=== PATIENT | female | born 1990 | race Caucasian/White ===

== ENCOUNTER 2017-02-13 20:36 | Inpatient (IN) | payer OTHER ==
[~2017-02-13] VITALS: Ht 162.6 cm; Wt 83.9 kg
[~2017-02-13 20:36] MED LIST: CYMBALTA20 M1 PO; HYDROCODON-ACETAMINO; HYDROCODONE BIT1 T26 PO; LYRICA100 MG PO; PRENATAL1 TA2 PO; VICODIN 300 MG-1 TAB; VICODIN 300 MG-1 TAB PO
[2017-02-14 00:46] LABS: ABSOLUTE BASOPHIL COUNT 0.1 /CUMM (0.0-0.2); ABSOLUTE EOSINOPHIL COUNT 0.2 /CUMM (0.0-0.7); ABSOLUTE GRANULOCYTE CT 8.7 /CUMM (1.4-6.5); ABSOLUTE LYMPH COUNT 2.5 /CUMM (1.2-3.4); ABSOLUTE MONOCYTE COUNT 0.7 /CUMM (0.10-0.60); BASOPHIL % 0.4 % (0.0-2.0); EOSINOPHIL % 1.5 % (0-5); GRANULOCYTE % 71.8 % (42.2-75.2); HEMATOCRIT 30.4 % (37-47); MEAN CORPUSCULAR HGB 28.5 PG (27.0-31.0); MEAN CORPUSCULAR HGB CONC 33.6 G/DL (33.0-37.0); MEAN CORPUSCULAR VOLUME 84.9 FL (81.0-99.0); PLATELET COUNT 313 /CUMM (130-400); RBC DISTRIBUTION WIDTH 14.1 % (11.5-14.5); RED BLOOD CELL CT 3.58 /CUMM (4.20-5.40); WHITE BLOOD CELL COUNT 12.1 /CUMM (4.8-10.8)
[2017-02-14] MEDS ORDERED: PRENATABS RX T1 EACH PO (09:36)
--- NOTE | 2017-02-14 16:32 | History & Physical ---
General Information and HPI MD Statement: I have seen and personally examined NEERAJ CORONA and documented this H&P. The patient is a 27 year old female at [38] weeks and [0] days gestation who presented with a chief complaint of [ACTIVE LABOR]. Source of Information: police History of Present Illness: 26YO LMP 05/23/16 EDC 02/27/17 AT 38 WEEKS IN ACTIVE LABOR. PNC COMPLETE AND REMARKABLE FOR FIBROMYALGIA ON VICODIN. Allergies/Medications Allergies: Coded Allergies: latex (Severe, HIVES 02/14/17) gluten (ABDOMINAL CRAMPING 02/14/17) Home Med list Duloxetine Hydrochloride (Cymbalta) 20 MG CAPSULE.DR 1 CAP PO DAILY FIBROMYALGIA (Reported) HYDROCODONE/ACETAMINOPHEN (Vicodin 5-300 MG Tablet) 5 MG-300 MG TABLET 1 TAB PO Q6P PRN PAIN Vit #76/Iron,Carb/FA (Prenatabs Rx Tablet) 29 MG IRON-1 MG TABLET 1 TAB PO DAILY (Reported) Past History branch specialist History : 3 Para: 2 Last Menstrual Period: 05/23/16 Estimated Delivery Date: 02/27/17 Past branch specialist History: non-contributory Medical History Musculoskeletal: rheumatoid arthritis Psychiatric: opioid dependence Cancer(s): melanoma Surgical History Pertinent Surgical History: cholecystectomy Past Family/Social History Psychosocial History Smoking Status: Never Smoked Review of Systems Review of Systems Constitutional: Reports: no symptoms. EENTM: Reports: no symptoms. Cardiovascular: Reports: no symptoms. Respiratory: Reports: no symptoms. GI: Reports: no symptoms. Genitourinary: Reports: see HPI. Musculoskeletal: Reports: see HPI. Skin: Reports: no symptoms. Neurological/Psychological: Reports: no symptoms. Hematologic/Endocrine: Reports: no symptoms. Immunologic/Allergic: Reports: no symptoms. All Other Systems: Reviewed and Negative Exam & Diagnostic Data Last 24 Hrs of Vital Signs/I&O Intake & Output 02/14 1600 02/14 0800 02/14 0000 Intake Total Output Total Balance Patient 185 lb Weight Obstetric Exam Wgt Gained During : 35 Pelvimetry: GYNECOID Dilation (cm): 5 Effacement (%): 50 Station: -1 Membranes: intact Fluid: unknown Fundal Height (cm): 40 Multiple Gestation? No Contractions: Q3-5 Infant #1 - FHR Baseline: 14 Category: 1 Estimated Weight: 7.5 Presentation: CEPHALIC Patient for Induction? No Labs Blood Type & Rh: A POS Antibody Screen: NEG Hct/Hgb & Platelets #1: Hct/Hgb & Platelets #2: Rubella: IMM VDRL #1: NR VDRL #2: NR HbsAg: NEG HIV #1: NEG HIV #2 NEG 1 Hr P Group B Strep: NEG Initial Ultrasound: WNL Anatomy Ultrasound: WNL Ultrasound for EFW: 6.5 Genetic Testing: NEG Last 24 Hrs of Labs/[place]: Laboratory Tests 02/14/17 0020: CBC w Diff NO MAN DIFF REQ, RBC 3.58 L, MCV 84.9, MCH 28.5, RDW 14.1, MPV 7.0 L, Gran % 71.8, Lymphocytes % 20.8, Monocytes % 5.5, Eosinophils % 1.5, Basophils % 0.4, Absolute Granulocytes 8.7 H, Absolute Lymphocytes 2.5, Absolute Monocytes 0.7 H, Absolute Eosinophils 0.2, Absolute Basophils 0.1, PUBS MCHC 33.6, Urine Opiates Screen 904.00, Methadone Screen 44, Barbiturate Screen < 60, Ur Phencyclidine Scrn < 6.00, Amphetamines Screen < 100, U Benzodiazepines Scrn < 85, Urine Cocaine Screen < 50, Urine Cannabis Screen < 5.00, Urine Color YEL, Urine Clarity HAZY H, Urine pH 6.0, Ur Specific Boaz 1.020, Urine Protein NEG, Urine Ketones NEG, Urine Nitrite NEG, Urine Bilirubin NEG, Urine Urobilinogen 0.2, Ur Leukocyte Esterase SMALL H, Ur Microscopic SEDIMENT EXAMINED, Urine RBC 1-3, Urine WBC 5-10 H, Ur Epithelial Cells MANY H , Urine Bacteria MANY H, Urine Hemoglobin MOD H, Urine Glucose NEG 02/13/172044: Membrane Rupture NEGATIVE Microbiology 02/14 1250 URINE ROUT: Urine Culture - RECD Assessment/Plan Assessment/Plan: ACTIVE LABOR AT 38 WEEKS EXPECTANT MGMT As Ranked By This Provider Problem List: 1. Core Measures/Miscellaneous Venous Thromboembolism VTE Risk Factors: / VTE Contraindications: No Contraindications VTE Diagnosis: No Beta Jordon Is Beta Jordon a Home Med? No Antibiotics Is Patient on Antibiotics? No
--- NOTE | 2017-02-14 16:36 | Labor & Delivery Summary ---
Delivery Summary Vaginal Delivery: Vaginal: spontaneous Episiotomy/Lacerations: Episiotomy/Lacerations: LAC Type: L LABIAL Repair: 3-0 INT X 2 Anesthesia: EPILOCAL Placenta: Placenta: spontanteous, normal, 3 vessel, nuchal cord (x_) Anesthesia: EPIDURAL Baby's Weight: 7-14 Apgars - 1 Min: 9 Apgars - 5 Min: 9
[2017-02-15 09:55] LABS: ABSOLUTE BASOPHIL COUNT 0.1 /CUMM (0.0-0.2); ABSOLUTE EOSINOPHIL COUNT 0.1 /CUMM (0.0-0.7); ABSOLUTE GRANULOCYTE CT 8.2 /CUMM (1.4-6.5); ABSOLUTE LYMPH COUNT 2.1 /CUMM (1.2-3.4); ABSOLUTE MONOCYTE COUNT 0.6 /CUMM (0.10-0.60); BASOPHIL % 0.5 % (0.0-2.0); GRANULOCYTE % 73.6 % (42.2-75.2); HEMATOCRIT 31.3 % (37-47); MEAN CORPUSCULAR HGB 28.9 PG (27.0-31.0); MEAN CORPUSCULAR HGB CONC 33.3 G/DL (33.0-37.0); MEAN CORPUSCULAR VOLUME 86.8 FL (81.0-99.0); PLATELET COUNT 240 /CUMM (130-400); RBC DISTRIBUTION WIDTH 14.2 % (11.5-14.5); RED BLOOD CELL CT 3.61 /CUMM (4.20-5.40); WHITE BLOOD CELL COUNT 11.1 /CUMM (4.8-10.8)
[2017-02-15] MEDS ORDERED: DOCUSATE SODIU100 M3 PO (12:40)
[2017-02-15] MEDS ORDERED: IBUPROFEN800 M1 PO (12:40)
--- NOTE | 2017-02-15 12:43 | PN- Post Delivery/GYN ---
Subjective Subjective: NO C/O Review of Systems: NEG Objective Last 24 Hrs of Vital Signs/I&O VSS Physical Exam: FF EXT NT Assessment/Plan Assessment/Plan S/P PPD1 DESIRES DISCHARGE Problem List: 1.
== END 2017-02-15 18:15 | DRG 560 ==
LOC: CBCO 20:36 → GNO 02-14
PROVIDERS: ADMIT Obstetrics & Gynecology
PROC: 0UQMXZZ Repair Vulva, External Approach (ICD-10-PCS; principal; 2017-02-14)
PROC: 10E0XZZ Delivery of Products of Conception, External Approach (ICD-10-PCS; principal; 2017-02-14)
DX: O70.0 First degree perineal laceration during delivery (principal); O69.81X0 Labor and delivery complicated by cord around neck, without compression, not applicable or unspecified; Z3A.38 38 weeks gestation of pregnancy; Z37.1 Single stillbirth; M79.7 Fibromyalgia; M06.9 Rheumatoid arthritis, unspecified; F11.20 Opioid dependence, uncomplicated; Z85.820 Personal history of malignant melanoma of skin
CPT/HCPCS: 80101; GNOS; 80307; 81001; 84112; 87086; 88307; G0378; G0463; J2270; J7120

== ENCOUNTER → 2017-04-08 | Day surgery (SDC) | payer OTHER ==
[~2017-04-08] VITALS: Ht 162.6 cm; Wt 77.1 kg
[~2017-04-08] MED LIST changes: +DOCUSATE SODIU100 M3 PO; +IBUPROFEN800 M1 PO; +PRENATABS RX T1 EACH PO
--- NOTE | 2017-04-08 07:58 | History & Physical Pre-Op ---
General Information and HPI History of Present Illness: Specimens a 27-year-old 3 para 3 who desires permanent sterilization. She understands that the procedure is permanent and irreversible with a low failure rate and wishes to proceed. Allergies/Medications Allergies: Coded Allergies: latex (Severe, HIVES 02/14/17) gluten (ABDOMINAL CRAMPING 02/14/17) Home Med list Docusate Sodium 100 MG CAPSULE 100 MG PO BID PRN STOOL SOFTENER Duloxetine Hydrochloride (Cymbalta) 20 MG CAPSULE.DR 1 CAP PO DAILY FIBROMYALGIA (Reported) HYDROCODONE/ACETAMINOPHEN (Vicodin 5-300 MG Tablet) 5 MG-300 MG TABLET 1 TAB PO Q6P PRN PAIN Ibuprofen 800 MG TABLET 800 MG PO Q6P PRN UTERINE CRAMPING Vit #76/Iron,Carb/FA (Prenatabs Rx Tablet) 29 MG IRON-1 MG TABLET 1 TAB PO DAILY (Reported) Past History Medical History Musculoskeletal: rheumatoid arthritis Psychiatric: opioid dependence Cancer(s): melanoma Tetanus Vaccine: 09/17/12 Surgical History Pertinent Surgical History: cholecystectomy Review of Systems Review of Systems Constitutional: Reports: no symptoms. EENTM: Reports: no symptoms. Cardiovascular: Reports: no symptoms. Respiratory: Reports: no symptoms. GI: Reports: no symptoms. Genitourinary: Reports: no symptoms. Musculoskeletal: Reports: no symptoms. Skin: Reports: no symptoms. Neurological/Psychological: Reports: no symptoms. Hematologic/Endocrine: Reports: no symptoms. Immunologic/Allergic: Reports: no symptoms. All Other Systems: Reviewed and Negative Exam & Diagnostic Data Physical Exam: HEENT: Normocephalic atraumatic Chest: Clear to auscultation bilaterally Cardiovascular: Normal S1-S2 Abdomen: Soft nontender no masses Pelvic: Deferred OR Extremities: No clubbing cyanosis or edema neuro Neurologic: Nonfocal Assessment/Plan Assessment/Plan: Multiparity, desires permanent sterilization Plan: Laparoscopic sterilization with 5 mm scope As Ranked By This Provider Problem List: 1. Multiparity
--- NOTE | 2017-05-06 16:22 | Operative Report ---
Operative/Inv Procedure Report Surgery Date: 04/08/17 Name of Procedure: Laparoscopic tubal sterilization Pre-Operative Diagnosis: Multiparity Post-Operative Diagnosis: Same Estimated Blood Loss: less than 50ml Surgeon/Cycling Instructor: HECTOR ESTRADA MD Anesthesia: general endotracheal tube Operative/Procedure Note Note: The patient was brought to the operating room placed on the OR table in dorsal supine position. She was given adequate general anesthesia and successfully intubated. She was repositioned positioned into modified dorsal lithotomy. She was prepped and draped in the usual sterile fashion. Weighted speculum was inserted into the vagina with the help of a [place] retractor single-tooth tenaculum was attached to the anterior lip of the cervix. An acorn cannula was inserted into the cervical os and attached to the tenaculum. The weighted speculum and [place] were removed. A Euceda catheter was placed as well and drained clear urine. The surgeon's gloves were changed and attention was paid to the abdomen. An infraumbilical skin incision was made with scalpel and a Veress needle was placed into the abdominal cavity. The abdomen was insufflated with CO2 gas under high flow and low pressure until an adequate pneumoperitoneum had been achieved. At this point the Veress needle was removed and replaced with a 5 mm disposable trocar through the trocar with camera was placed and good anatomic position and hemostasis was noted. The patient was placed into Trendelenburg position. A suprapubic stab incision was made and a 5 mm disposable trocar was inserted under direct visualization. Through this trocar sleeve the Kleppinger bipolar cautery was placed. Fallopian tubes and ovaries and uterus all appeared normal. The right fallopian tube was grasped with Kleppinger clamp and divided and cauterized 20 voltage in several segments totaling 4 cm. Essentially the same procedure is repeated on the left with good hemostasis bilaterally. The upper abdomen was explored and noted to be normal appearing. At this point the CO2 gas was allowed to escape the abdomen and the instruments removed. The skin incisions were closed with 3-0 Biosyn in this interrupted fashion. The wounds were dressed patient was awakened and sent to recovery condition in good condition all needle sponge and spray counts were correct at the end of the procedure 2.
== END ==
LOC: STS 03:27
DX: Z30.2 Encounter for sterilization (principal); M06.9 Rheumatoid arthritis, unspecified; J45.909 Unspecified asthma, uncomplicated
CPT/HCPCS: 81025; J1885; J2250